=== PATIENT | female | born 1970 | race Caucasian/White ===

== ENCOUNTER 2018-06-25 06:35 | Day surgery (SDC) | payer BC, SELFPAY ==
[2018-06-22 14:10] LABS: Urine Appearance CLEAR; Urine Bilirubin NEGATIVE (NEG); Urine Blood NEGATIVE (NEG); Urine Color YELLOW; Urine Glucose NEGATIVE (NEG); Urine Protein NEGATIVE (NEG); Urine Specific Gravity <=1.005 (1.005-1.030); Urine Urobilinogen 0.2 mg/dL (0.2-1.0)
[2018-06-22 14:44] LABS: Absolute Lymphocytes (CBC) 1.9 K/uL (0.7-4.9); Absolute Monocytes 0.4 K/uL (0.1-1.3); Absolute Neutrophil 3.3 K/uL (1.8-8.0); Basophils % 0.8 % (0-1.3); Eosinophils % 1.6 % (0-4.4); Hematocrit 40.7 % (36.0-45.0); Lymphocytes % 32.6 % (15.3-44.8); MPV 9.2 fL (7.6-11.3); Monocytes % 7.1 % (3.3-12.3); RBC Red Blood Cell Count 4.39 M/uL (3.86-4.86)
[2018-06-22 14:46] LABS: Urine Microscopic Reflex NO UMIC
[2018-06-25] MEDS ORDERED: Ringers Lactate 1,000 ML IV ONE ×3 (06:54→13:02)
[2018-06-25] MEDS ORDERED: SCOPOLAMINE HYDROBROMIDE PATCH TD ONE (06:54)
[2018-06-25] MEDS ORDERED: CEFAZOLIN/SWI 2gm 2 GM/20 ML SYR ONE (06:55)
[2018-06-25] MEDS ORDERED: PROPOFOL 200 MG/20 ML VIAL IV ONE (07:26)
[2018-06-25] MEDS ORDERED: ROCURONIUM 50 MG/5 ML VIAL IV ONE (07:26)
[2018-06-25] MEDS ORDERED: DEXAMETHASONE 10 MG/ML VIAL ONE (07:26)
[2018-06-25] MEDS ORDERED: FENTANYL CITR 250 MCG/5 ML ONE (07:27)
[2018-06-25] MEDS ORDERED: LIDOCAINE 2% MPF 5 ML VIAL ONE (07:27)
[2018-06-25] MEDS ORDERED: MIDAZOLAM HCL 2 MG/2 ML INJ ONE (07:27)
[2018-06-25] MEDS ORDERED: ONDANSETRON 4 MG/2 ML VIAL ONE (07:28)
[2018-06-25] MEDS ORDERED: KETOROLAC 30 MG/ML INJ ONE (09:40)
[2018-06-25] MEDS ORDERED: MORPHINE 10 MG/ML VIAL ONE (09:51)
[2018-06-25] MEDS: HYDROMORPHONE HCL 1 MG/ML INJ ONE ×2 (10:15→10:22)
[2018-06-25] MEDS ORDERED: ONDANSETRON HCL 40 MG/20 ML VIAL ONE (10:26)
[2018-06-25] MEDS ORDERED: PROMETHAZINE 25 MG/ML VIAL ONE (10:45)
[2018-06-25] MEDS ORDERED: HYDROMORPHONE HCL 1 MG/ML INJ ONE (10:53)
[2018-06-25] MEDS ORDERED: HYDROCODONE/APAP 5/325 MG TAB ONE (12:33)
--- NOTE | 2018-06-25 16:24 | OP ---
Date of Procedure: 06/25/2018 Surgeon: Gabi Koch MD Director Inpatient Headache Program: Carmen Winter. Preoperative Diagnoses: Left lower quadrant pain, irregular bleeding, and left ovarian cyst. Family history of colon cancer. Postoperative Diagnoses: Left lower quadrant pain, irregular bleeding, and left ovarian cyst. Famil y history of colon cancer. Bilateral hydrosalpinges, possible endometriosis, and bilateral ovarian t ubo-ovarian adhesions. Estimated Blood Loss: Minimal. Specimens: Uterus, bilateral tubes, and left ovary. Complications: None. Drains: None. Procedures: Laparoscopic hysterectomy, bilateral salpingectomy, left oophorectomy, cystoscopy, left ureteric stent placement and removal. Indications For Procedure: The patient is a 48-year-old lady, presented with left lower quadrant rosy n about 3 years ago. She was evaluated with ultrasound and the left ovarian cyst was noted. 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 She had surgery at the time for the cyst, an d there was description of adhesions and difficulty removing the entire left ovary. The patient then slightly improved for some time and then the pain has recurred, so plan was made to evaluate this ag ain. The patient also has irregular bleeding. Endometrial sampling was negative for atypia or malig eladio. She was counseled about her options of using medical treatment like Depo or repeat surgical t reatment with possible left oophorectomy, lysis of adhesions. My understanding was that the left tub e was removed, so she was consented for right salpingectomy. Cystoscopy with placement of left urete arron stent to facilitate the dissection of the ureter given the operative findings was done. Then hys terectomy was discussed with the patient as she does have irregular bleeding and cramping. The left lower quadrant pain is much worse at the time of the period. So if there was any adenomyosis without endometriosis or scar tissue then that removal would enable the better resolution of pain postoperat ively. After understanding the benefits and risks of the procedure, she was consented and she was br ought to the OR. Description Of Procedure: After informed consent was re-verified, she was taken back to OR. Two gra ms of Tino were given preop. She was placed in supine fashion. General anesthesia was given. She was then placed in a dorsal lithotomy position using Enzo stirrups. Arms were tucked by the side. After positioning was checked, SCDs were started. Time-out was done. The patient's abdomen, vulva, vagina, and perineum were prepped and draped in a sterile fashion. Cystoscopy with a 17-Macedonian sheat h, 30-degree lens and normal saline were done. Both ureteric orifices were well visualized. The lef t ureter was visualized. A 0.035 mm Glidewire was inserted through the ureteric orifice, advanced to about 20 cm. Then, the scope was removed. A 5-Macedonian stent was placed over the top of the Glidewir e and the Glidewire was removed. The stent was left in place. Gill was inserted and this was attac hed, and both were tied together with a silk stitch, inserted through a Guy tree connection and then attached to a drainage bag using cysto-tubing, left to drain on the floor. Speculum placed in the vagina, cervix exposed. The anterior lip grasped with 2 Allis clamps. A large VCare was inserte d into place and fixed in place. All the instruments were removed. This area was then draped. A 1 cm infraumbilical incision was made with a scalpel using the open laparoscopy technique. Fascia was incised and the peritoneal entry was gained. Both edges were sutured with a 0 Vicryl stitch as r etention stitches. Then, after the Raiza was introduced. After bluntly entering the peritoneal cav ity, the Raiza was secured in place with the ties. Site of entry was checked and was unremarkable. Upper abdominal surfaces, liver, gallbladder unremarkable. 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 The patient was placed in Trendelenburg position. A 10 mm suprapubic and 5 mm left lower quadrant po rts were placed under direct vision. On inspection of the peritoneal cavity, there were some adhesio ns of the left ovary to the left pelvic sidewall. The ureteric course was well visualized and was fa r away from the area of dissection. So, I took down the adhesions with the help of sharp scissors, a nd after restoring the normal anatomy of the left ovary and tube, the tube on the opposite side was a lso inspected. The ovary had an adhesions as well and these were taken down with sharp scissors. Th en, both sides of the tubes were swollen, especially at the cornual end, and they were nodular. Bila teral hydrosalpinges were noted and a small piece of the left ovary was left. The plan was to remove both tubes, left ovary, then remove the uterus. There were some minor adhesions in the posterior cul-de-sac as well. These were also taken down with the help of sharp scissors and adhesions to the right pelvic sidewall as well. There was hydropic c hanges on the peritoneum, close to here, and these were taken down with the help of the scissors. Th en, the hysterectomy was started. A 5 mm LigaSure was taken. The round ligament was taken down on the left side. Peritoneum was opene d up anteriorly, raising the bladder flap all the way to the opposite round ligament. Then, the meso salpinx tube were removed on the left side. Then, the utero-ovarian ligament was taken down. The po sterior broad ligament taken down to the level of the left uterosacral ligament, and the broad ligame nt was taken down and vessels skeletonized. On the opposite side, similar dissection was performed t aking down the utero-ovarian ligament, mesosalpinx, and tube. The tube was also removed and removed from the peritoneal cavity. Then I went ahead and took down the round ligament. Posterior and anter ior broad ligaments were opened up. The anterior broad ligament was connected to the bladder flap an d posteriorly taken down to the left uterosacral here. I did perform some dissection to remove the h ydropic changes as this was possible endometriosis. Excision was performed to help of the monopolar to dissect and leave this with the specimen side. Once this was done, the ureter was dissected and m sahara to the lateral aspect. Then, the broad ligament was skeletonized, vessels were exposed. The bl adder flap was cleared up further with a monopolar hook blade. The precervical fascia was well visua lized. All the preperitoneal fat and the bladder were pushed down the vesicovaginal space. Then, th e vessels were taken on the right side. The cardinal ligaments on the left side as well with the Lig aSure, then circumferential colpotomy was performed with the help of the monopolar hook blade. The s pecimen detached and pulled out through the vagina. The left ovary and the remnant part of the left tube were all taken down with the help of the LigaSure and the specimen was removed. After all the s pecimens were retrieved, thorough irrigation and suction of the pelvic cavity were done, and the vagi nal cuff was sutured with 0 Vicryl sutures on both ends and 3 [id number] in the middle. The re mnant of the uterosacral was pulled up and reattached to the vaginal cuff for restoring the pelvic escobar pport at the apex at level 1. After the entire closure was done, thorough irrigation and suction were performed. There was excelle nt hemostasis. Both ureters had no evidence of electrical, mechanical, or thermal injury to them. A ll the trocars were removed under direct vision. The port site at the umbilicus was closed with the help of a 0 Vicryl in a uilbyr-ol-hsdkw fashion and a simple 0 Vicryl stitch at the suprapubic site. All skin incisions closed with interrupted 4-0 Vicryl. Then I removed the Gill and the stent. Cys toscopy was performed with a 17-Macedonian sheath and 30-degree lens. Both ureteric orifices were patent and had strong streams of urine from there. There was no evidence of any trauma or foreign body in the bladder. The bladder was drained. The vaginal bulb was removed. All the instrument, needle, an d sponge counts were done and were correct at the end of the case. The patient tolerated the procedu re very well. She was recovered from anesthesia in the OR and taken to PACU in stable condition. IMANI/TAYLOR Voice ID: [id number] Report ID: [id number]
== END 2018-06-25 15:13 | disposition home or self-care (01) ==
LOC: OR 06:35
PROVIDERS: ATTEND Obstetrics & Gynecology
PROC: 0UT1FZZ Resection of Left Ovary, Via Natural or Artificial Opening With Percutaneous Endoscopic Assistance (ICD-10-PCS; 2018-06-25)
PROC: 0UT7FZZ Resection of Bilateral Fallopian Tubes, Via Natural or Artificial Opening With Percutaneous Endoscopic Assistance (ICD-10-PCS; 2018-06-25)
PROC: 0UT9FZZ Resection of Uterus, Via Natural or Artificial Opening With Percutaneous Endoscopic Assistance (ICD-10-PCS; principal; 2018-06-25 07:30)
DX: D25.9 Leiomyoma of uterus, unspecified (principal); N83.292 Other ovarian cyst, left side; N83.8 Other noninflammatory disorders of ovary, fallopian tube and broad ligament; N73.6 Female pelvic peritoneal adhesions (postinfective); N70.11 Chronic salpingitis; N92.6 Irregular menstruation, unspecified; Z80.0 Family history of malignant neoplasm of digestive organs; F17.210 Nicotine dependence, cigarettes, uncomplicated
CPT/HCPCS: 36415; 81003; 81025; 85025; 86850; 86900; 86901; 88307; J0690; J1100; J1170; J2250; J2405; J2550; J2704; J3010

== ENCOUNTER 2018-06-30 06:32 | Emergency (ER) | payer BC, SELFPAY ==
[2018-06-30] MEDS ORDERED: SIMETHICONE 80 MG TAB PO ONE (07:15)
[2018-06-30] MEDS ORDERED: FENTANYL CITR 100 MCG/2 ML ONE (07:18)
[2018-06-30] MEDS ORDERED: NA CHLORIDE 0.9% 1,000 ML ONE (07:18)
[2018-06-30 07:39] LABS: Absolute Lymphocytes (CBC) 1.9 K/uL (0.7-4.9); Absolute Neutrophil 9.5 K/uL (1.8-8.0); Basophils % 0.4 % (0-1.3); Eosinophils % 2.3 % (0-4.4); Hematocrit 41.3 % (36.0-45.0); Lymphocytes % 15.2 % (15.3-44.8); MPV 8.8 fL (7.6-11.3); Monocytes % 8.2 % (3.3-12.3)
[2018-06-30 07:50] LABS: BUN Blood Urea Nitrogen 11 mg/dL (7-18); Bicarbonate 23 mmol/L (21-32); Glucose Level 92 mg/dL (74-106); Sodium Level 138 mmol/L (136-145)
[2018-06-30] MEDS ORDERED: SIMETHICONE 80 MG TAB ONE (08:24)
[2018-06-30 09:07] LABS: Urine Bacteria NONE SEEN /HPF (<20); Urine Culture Reflex Order NOT NEEDED; Urine RBC <5 /HPF (NONE SEEN)
--- NOTE | 2018-06-30 09:47 | ER ---
Nurse's Notes [facility] Name: Comfort Salguero Age: 48 yrs Sex: Female : 1970 Arrival Date: 06/30/2018 Time: 06:32 Bed 7 Private MD: Diagnosis: Gas pain Presentation: 06/30 06:41 Presenting complaint: Patient states: she had a hysterectomy on by Dr August nice and woke up this morning with much more pain than she had been experiencing. Transition of care: patient was not received from another setting of care. Onset of symptoms was June 30, 2018. Risk Assessment: Do you want to hurt yourself or someone else? Patient reports no desire to harm self or others. Initial Sepsis Screen: Does the patient meet any 2 criteria? No. Patient's initial sepsis screen is negative. Does the patient have a suspected source of infection? No. Patient's initial sepsis screen is negative. Care prior to arrival: None. 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 - Social history:: Smoking status: Patient uses tobacco products, denies chronic smoking, but will smoke occasionally, vapes, Patient uses alcohol, occasionally. - Ebola Screening: : No symptoms or risks identified at this time. Screenin:22 Abuse screen: Denies threats or abuse. Denies injuries from another. Nutritional ph screening: No deficits noted. Tuberculosis screening: No symptoms or risk factors identified. Fall Risk None identified. Assessment: 07:23 General: Appears in no apparent distress. comfortable, well groomed, Behavior is ph anxious, crying, fussy, Denies fever, chills. Pain: Complains of pain in left lower quadrant Pain radiates to back. Neuro: Level of Consciousness is awake, alert, obeys commands, Oriented to person, place, time, situation. Cardiovascular: Capillary refill < 3 seconds in bilateral fingers Patient's skin is warm and dry. Respiratory: Airway is patent Respiratory effort is even, unlabored, Respiratory pattern is tachypnea Denies shortness of breath at rest. GI: Patient currently denies nausea, vomiting. Derm: Skin is intact, is healthy with good turgor, Skin is pink, warm \T\ dry. Musculoskeletal: Circulation, motion, and sensation intact. Range of motion: intact in all extremities. 09:07 Reassessment: Patient appears in no apparent distress at this time. Patient and/or ph family updated on plan of care and expected duration. Pain level reassessed. Patient is alert, oriented x 3, equal unlabored respirations, skin warm/dry/pink. Vital Signs: 06:44 BP 113 / 85; Pulse 95; Resp 18 S; Temp 98.3(O); Pulse Ox 96% on R/A; Weight 71.21 kg bb (R); Height 5 ft. 10 in. (177.80 cm) (R); Pain 8/10; 08:30 BP 122 / 87; Pulse 96; Resp 22; Pulse Ox 99% on R/A; ph 10:00 BP 117 / 78; Pulse 91; Resp 18; Temp 98.0; Pulse Ox 99% on R/A; ph 06:44 Body Mass Index 22.53 (71.21 kg, 177.80 cm) ED Course: 06:32 Patient arrived in ED. ds1 06:40 [facility]C [facility] snw 06:40 Gutierrez Del Valle MD is Attending Physician. snw 06:43 Triage completed. bb 06:44 Arm band placed on Patient placed in an exam room, on a stretcher, on pulse oximetry. bb Family accompanied patient. 07:00 Shabana Olvera, RN is Primary Nurse. ph 07:10 Inserted saline lock: 22 gauge in right forearm, using aseptic technique. Blood ph collected. 07:22 Patient has correct armband on for positive identification. Placed in gown. Bed in low ph position. Call light in reach. Side rails up X 1. Pulse ox on. NIBP on. 09:47 Gabi Koch MD is Referral Physician. snw 10:00 No provider procedures requiring assistance completed. IV discontinued, intact, ph bleeding controlled, No redness/swelling at site. Pressure dressing applied. Administered Medications: 08:13 Drug: Simethicone 120 mg Route: PO; sv 10:15 Follow up: Response: No adverse reaction ph 10:14 Not Given (Patient Refused): fentaNYL (PF) 25 mcg IVP once ph 10:14 Not Given (Patient Refused): NS 0.9% 1000 ml IV at 1 bolus Per protocol; 1000 mL bolus ph Outcome: 09:47 Discharge ordered by MD. chaparro 10:15 Patient left the ED. ph 10:15 Discharged to home ambulatory. ph 10:15 Condition: good 10:15 Discharge instructions given to patient, Instructed on discharge instructions, follow up and referral plans. medication usage, Demonstrated understanding of instructions, follow-up care, medications, Prescriptions given X 1. Signatures: Joellen Yun, RN RN Dinorah Severino, HARDWARE MANAGER-C HARDWARE MANAGER-Laya Mcintosh ds1 Windy Young, RN RN bb Shabana Olvera RN RN ph
--- NOTE | 2018-06-30 09:48 | EDPHYS ---
Physician Documentation [facility] Name: Comfort Salguero Age: 48 yrs Sex: Female : 1970 Arrival Date: 06/30/2018 Time: 06:32 Bed 7 Private MD: ED Physician Gutierrez Del Valle HPI: 06/30 11:56 This 48 yrs old Female presents to ER via Ambulatory with complaints of Post snw Surgical Pain. 11:56 The patient presents with abdominal pain abdominal distention. Onset: The snw symptoms/episode began/occurred suddenly, this morning. The symptoms do not radiate. The symptoms are described as crampy. Modifying factors: The symptoms are alleviated by nothing. It is unknown whether or not the patient has had similar symptoms in the past. 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 - Social history:: Smoking status: Patient uses tobacco products, denies chronic smoking, but will smoke occasionally, vapes, Patient uses alcohol, occasionally. - Ebola Screening: : No symptoms or risks identified at this time. ROS: 06:48 Constitutional: Negative for fever, chills, and weight loss, Eyes: Negative for injury, snw pain, redness, and discharge, ENT: Negative for injury, pain, and discharge, Neck: Negative for injury, pain, and swelling, Cardiovascular: Negative for chest pain, palpitations, and edema, Respiratory: Negative for shortness of breath, cough, wheezing, and pleuritic chest pain, Back: Negative for injury and pain, : Negative for injury, bleeding, discharge, and swelling, MS/Extremity: Negative for injury and deformity, Skin: Negative for injury, rash, and discoloration, Neuro: Negative for headache, weakness, numbness, tingling, and seizure. 06:48 Abdomen/GI: Positive for abdominal pain, abdominal cramps. Exam: 06:46 Head/Face: Normocephalic, atraumatic. Eyes: Pupils equal round and reactive to light, snw extra-ocular motions intact. Lids and lashes normal. Conjunctiva and sclera are non-icteric and not injected. Cornea within normal limits. Periorbital areas with no swelling, redness, or edema. ENT: Nares patent. No nasal discharge, no septal abnormalities noted. Tympanic membranes are normal and external auditory canals are clear. Oropharynx with no redness, swelling, or masses, exudates, or evidence of obstruction, uvula midline. Mucous membranes moist. Neck: Trachea midline, no thyromegaly or masses palpated, and no cervical lymphadenopathy. Supple, full range of motion without nuchal rigidity, or vertebral point tenderness. No Meningismus. Chest/axilla: Normal chest wall appearance and motion. Nontender with no deformity. No lesions are appreciated. Cardiovascular: Regular rate and rhythm with a normal S1 and S2. No gallops, murmurs, or rubs. Normal PMI, no JVD. No pulse deficits. Respiratory: Lungs have equal breath sounds bilaterally, clear to auscultation and percussion. No rales, rhonchi or wheezes noted. No increased work of breathing, no retractions or nasal flaring. Back: No spinal tenderness. No costovertebral tenderness. Full range of motion. Skin: Warm, dry with normal turgor. Normal color with no rashes, no lesions, and no evidence of cellulitis. MS/ Extremity: Pulses equal, no cyanosis. Neurovascular intact. Full, normal range of motion. Neuro: Awake and alert, GCS 15, oriented to person, place, time, and situation. Cranial nerves II-XII grossly intact. Motor strength 5/5 in all extremities. Sensory grossly intact. Cerebellar exam normal. Normal gait. Psych: Awake, alert, with orientation to person, place and time. Behavior, mood, and affect are within normal limits. 06:46 Constitutional: The patient appears alert, awake, anxious, restless, uncomfortable. 06:46 Abdomen/GI: Inspection: abdomen appears normal, bruising, at puncture sites, Bowel sounds: diminished, Palpation: moderate abdominal tenderness, in the left lower quadrant. Vital Signs: 06:44 BP 113 / 85; Pulse 95; Resp 18 S; Temp 98.3(O); Pulse Ox 96% on R/A; Weight 71.21 kg bb (R); Height 5 ft. 10 in. (177.80 cm) (R); Pain 8/10; 08:30 BP 122 / 87; Pulse 96; Resp 22; Pulse Ox 99% on R/A; ph 10:00 BP 117 / 78; Pulse 91; Resp 18; Temp 98.0; Pulse Ox 99% on R/A; ph 06:44 Body Mass Index 22.53 (71.21 kg, 177.80 cm) bb MDM: 06:41 Patient medically screened. snw 09:55 Data reviewed: vital signs, nurses notes. Data interpreted: Pulse oximetry: on room air snw is 96 %. Interpretation: acceptable. Counseling: I had a detailed discussion with the patient and/or guardian regarding: the historical points, exam findings, and any diagnostic results supporting the discharge/admit diagnosis, the presence of at least one elevated blood pressure reading (>120/80) during this emergency department visit, lab results, the need for outpatient follow up, for definitive care, to return to the emergency department if symptoms worsen or persist or if there are any questions or concerns that arise at home. Special discussion: Based on the history and exam findings, there is no indication for further emergent testing or inpatient evaluation. I discussed with the patient/guardian the need to see the primary care provider for further evaluation of the symptoms. 06/30 06:48 Order name: CBC with Diff; Complete Time: 07:57 snw 06/30 06:48 Order name: Chem 7; Complete Time: 07:50 snw 06/30 06:48 Order name: Urine Microscopic Only; Complete Time: 09:10 snw 06/30 08:05 Order name: Urine Dipstick--Ancillary (enter results) [facility] 06/30 08:06 Order name: Urine --Ancillary (enter results) [facility] 06/30 06:48 Order name: Urine Dipstick-Ancillary (obtain specimen); Complete Time: 09:08 snw Administered Medications: 08:13 Drug: Simethicone 120 mg Route: PO; sv 10:15 Follow up: Response: No adverse reaction ph 10:14 Not Given (Patient Refused): fentaNYL (PF) 25 mcg IVP once ph 10:14 Not Given (Patient Refused): NS 0.9% 1000 ml IV at 1 bolus Per protocol; 1000 mL bolus ph Disposition: 06/30/18 09:47 Discharged to Home. Impression: Gas pain. - Condition is Stable. - Discharge Instructions: Abdominal Pain, Adult, Intestinal Gas and Gas Pains, Pediatric. - Prescriptions for Gas- X Ultra-Strength - take 1 unit by ORAL route 1-3 times daily; 1 box. - Medication Reconciliation Form, Thank You Letter, Antibiotic Education, Prescription Opioid Use form. - Follow up: Private Physician; When: As needed; Reason: Worsening of condition. Follow up: Gabi Koch MD; When: Tomorrow; Reason: Recheck today's complaints, Continuance of care. Addendum: 07/03/2018 07:06 Co-signature as Attending Physician, Gutierrez Del Valle MD. r n Signatures: Dispatcher [employer] Joellen Daniels, RN RN Dinorah Severino, BANK NOTE DESIGNER-C BANK NOTE DESIGNER-Csnw Windy Young RN RN Gutierrez Almonte MD MD rn Hall, Patricia, RN RN ph Corrections: (The following items were deleted from the chart) 06/30 10:15 09:47 06/30/2018 09:47 Discharged to Home. Impression: Gas pain. Condition is Stable. ph Forms are Medication Reconciliation Form, Thank You Letter, Antibiotic Education, Prescription Opioid Use. Follow up: Private Physician; When: As needed; Reason: Worsening of condition. Follow up: Gabi Koch; When: Tomorrow; Reason: Recheck today's complaints, Continuance of care. snw
[2018-06-30 12:12] LABS: Urine Blood NEGATIVE (NEG); Urine Glucose NEGATIVE (NEG); Urine Protein NEGATIVE (NEG); Urine pH 5.5 (5.0-7.0)
== END 2018-06-30 10:15 | disposition home or self-care (01) ==
LOC: ER 06:32
DX: R14.1 Gas pain (principal); Z72.0 Tobacco use
CPT/HCPCS: 36415; 80048; 81003; 81015; 81025; 85025; 99284; J3010; J7030